=== PATIENT | male | born 1955 | race Caucasian/White ===

== ENCOUNTER 2017-03-24 09:25 | Observation (INO) | payer BC ==
[~2017-03-24] VITALS: Ht 170.2 cm; Wt 72.6 kg
[~2017-03-24 09:25] MED LIST: ceFAZolin 2GM PREMIX 2 GM/50 ML BAG IV ONE
--- NOTE | 2017-03-24 10:22 | PHYS DOC ---
Adult General Chief Complaint Chief Complaint: CONSTIPATION HPI HPI 61-year-old male with no prior GI history now presents to the emergency department because he has a small bottle stuck in his rectum. Patient states that yesterday he put a small hand cream bottle with a cylindrical shape approximately 4-5 inches long in his rectum. It did not come out and he is concerned that he is getting constipated as a result of it. He has been of some watery stool since the insertion episode. No pain or bleeding. No distended abdomen or vomiting. Review of Systems Review of Systems Constitutional: Denies fever or chills [] Eyes: Denies change in visual acuity, redness, or eye pain [] HENT: Denies nasal congestion or sore throat [] Respiratory: Denies cough or shortness of breath [] Cardiovascular: No additional information not addressed in HPI [] GI: Denies abdominal pain, nausea, vomiting, bloody stools or diarrhea [] : Denies dysuria or hematuria [] Musculoskeletal: Denies back pain or joint pain [] Integument: Denies rash or skin lesions [] Neurologic: Denies headache, focal weakness or sensory changes [] Endocrine: Denies polyuria or polydipsia [] Allergies Allergies Allergies Coded Allergies Type Severity Reaction Last Updated Verified No Known Drug Allergies 03/24/17 No Physical Exam Physical Exam Well-appearing 61-year-old male no acute distress smiling alert communicative and comfortable appearing clear lungs regular rate and rhythm no tachycardia benign abdomen and and anterior pelvis. No CVA tenderness. Nondistended abdomen with normal bowel sounds no mass or megaly. Constitutional: Well developed, well nourished, no acute distress, non-toxic appearance. [] HENT: Normocephalic, atraumatic, bilateral external ears normal, oropharynx moist, no oral exudates, nose normal. [] Eyes: PERRLA, EOMI, conjunctiva normal, no discharge. [] Neck: Normal range of motion, no tenderness, supple, no stridor. [] Cardiovascular:Heart rate regular rhythm, no murmur [] Lungs & Thorax: Bilateral breath sounds clear to auscultation [] Abdomen: Bowel sounds normal, soft, no tenderness, no masses, no pulsatile masses. [] Skin: Warm, dry, no erythema, no rash. [] Back: No tenderness, no CVA tenderness. [] Extremities: No tenderness, no cyanosis, no clubbing, ROM intact, no edema. [] Neurologic: Alert and oriented X 3, no focal deficits noted. [] Psychologic: Affect normal, judgement normal, mood normal. [] Current Patient Data Vital Signs Vital Signs Date Time Temp Pulse Resp B/P (MAP) Pulse Ox O2 Delivery O2 Flow Rate FiO2 03/24/17 10:59 98.3 97 18 150/98 (115) 97 Room Air 98.3 EKG EKG [] Radiology/Procedures Radiology/Procedures [] Course & Med Decision Making Course & Med Decision Making Pertinent Labs and Imaging studies reviewed. (See chart for details) 61-year-old male with rectal foreign body. No acute distress. No clinical evidence of rectal obstruction. Well-appearing patient vital signs stable. X- ray pending for further evaluation. X-ray without radiopaque foreign body. CT ordered given that radio opacity of object in question is unknown. CT returned with identifiable rectal foreign body 12 cm long 7 cm from the anus. Case will be discussed with GI piped buttonhole machine operator regarding strategy for extraction. Dr. Dowd of GI feels there is no therapeutic intervention he can offer given the nature and position of the foreign body in question. He recommends the patient to surgery. Case discussed with Dr. Be surgery on-call is aware the history and findings nature and position of said foreign body and will address by procedural/operative intervention in the OR. Patient will be kept nothing by mouth. Dragon Disclaimer Dragon Disclaimer This electronic medical record was generated, in whole or in part, using a voice recognition dictation system. Departure Departure Impression: Primary Impression: Rectal foreign body Disposition: ADMITTED INPATIENT Admitting Physician: Other Condition: STABLE Referrals: NO PCP (PCP) AL LYNCH MD Mar 24, 2017 10:22
--- NOTE | 2017-03-24 10:56 | RAD ---
Exam performed: One view pelvis. Clinical Indication: Rectal foreign body, hand lotion tube Date of Service:03/24/17 Comparison:None available Findings: AP radiograph of the pelvis to include the proximal portion of each femur reveals the osseous structures to be intact and well aligned. The joint spaces are well-preserved. Evidence of fracture or dislocation is not seen. No radiopaque foreign body is seen. Impression: Radiographically normal pelvis.
--- NOTE | 2017-03-24 14:01 | RAD ---
CT scan of the abdomen and pelvis without contrast 03/24/2017 Clinical history: The patient inserted a cylindrical tube of hand cream into rectum and is uncertain where it is located. Technique: Unenhanced, contiguous, 5 mm axial sections were obtained through the abdomen and pelvis. One or more of the following individualized dose reduction techniques were utilized for this study: 1. Automated exposure control. 2. Adjustment of the mA and/or kV according to patient size. 3. Use of iterative reconstruction technique. Findings: Images through the lung bases demonstrate linear bands of subsegmental atelectasis involving both lower lobes, right greater than left. There is a small sliding hiatal hernia. Multiple rounded low-attenuation lesions are seen scattered throughout both lobes of the liver. These measure 3 mm to 4.4 cm in size. They likely represent hepatic cysts. The spleen, pancreas, and adrenal glands are within normal limits. Nonobstructing calculi are seen involving both kidneys, left greater than right. These measure 1 to 4 mm in size. The gallbladder is contracted. The abdominal aorta tapers normally. No free fluid or free air is seen within the abdomen. There is no evidence of bowel obstruction. Images through the pelvis demonstrate the urinary bladder distended with urine. A foreign body consistent a tube of hand cream, is seen within the proximal/mid rectum. It measures approximately 12 cm in length. It is approximately 7.5 cm from the expected location of the anus. No additional foreign body is seen. Minimal S shaped curvature of the thoracic lumbar spine is seen. Degenerative changes are seen involving the lumbar spine and both hips. Impression: The rectal foreign body is located within the proximal/mid rectum as outlined above. No perforation is seen.
[2017-03-24] MEDS ORDERED: IV RINGERS,LACTATED 1000ML 1,000 ML IV SCH (15:54)
[2017-03-24] MEDS ORDERED: PROCHLORPERAZINE 10 MG/2 ML VIAL. IV PRN (16:00)
[2017-03-24] MEDS ORDERED: LIDOCAINE 1% 1 ML SYRINGE. ID PRN (16:00)
[2017-03-24] MEDS ORDERED: fentaNYL PF VIAL 100 MCG/2 ML VIAL IV PRN ×2 (16:00)
[2017-03-24] MEDS ORDERED: HYDROmorphone 2 MG/ML VIAL IV PRN (16:00)
[2017-03-24] MEDS ORDERED: ONDANSETRON PF 4 MG/2 ML VIAL. IV PRN (16:00)
[2017-03-24] MEDS ORDERED: MORPHINE SULFATE 2 MG/ML DISP.SYRIN. IV PRN (16:00)
[2017-03-24] MEDS ORDERED: BUPIVAC MPF-EPI 0.5%-1:200000 30 ML VIAL. ONE (16:02)
[2017-03-24] MEDS ORDERED: GELATIN SPONGE SIZE 100. ONE (16:02)
[2017-03-24] MEDS ORDERED: IV NORMAL SALINE 1000ML BAG 1,000 ML IV ONE (16:15)
--- NOTE | 2017-03-24 16:16 | EKG ---
[facility] [address] [place] [address] Test Date: 2017-03-24 Test Time: 16:00:00 Pat Name: PATRICIA GRANT Department: Room: 416 Gender: M [employer]: : 1955 Requested By: AL LYNCH Order Number: [id number] Reading MD: Demian Thomason Measurements Intervals [place] Rate: 93 P: 36 ID: [id number] QRS: 48 QRSD: 76 T: 30 QT: 360 QTc: 450 Interpretive Statements SINUS RHYTHM Electronically Signed On 03-25-2017 9:30:03 CDT by Demian Thomason
[2017-03-24] MEDS ORDERED: MIDAZOLAM HCL/PF 2 MG/2 ML VIAL. ONE (16:49)
[2017-03-24] MEDS ORDERED: fentaNYL PF VIAL 100 MCG/2 ML VIAL ONE (16:49)
[2017-03-24] MEDS ORDERED: PROPOFOL 20 ML IV ONE (16:49)
[2017-03-24] MEDS ORDERED: ONDANSETRON PF 4 MG/2 ML VIAL. ONE (16:49)
[2017-03-24] MEDS ORDERED: DEXAMETHASONE SOD PHOS 20 MG/5 ML VIAL. ONE (16:49)
[2017-03-24] MEDS ORDERED: LIDOCAINE 2% PF Vial for OR 5 ML VIAL. ONE (16:49)
--- NOTE | 2017-03-24 17:20 | PDOC1 ---
History and Physical Date of Admission Date of Admission DATE: 03/24/17 TIME: 17:16 History of Present Illness History of Present Illness The patient is a 61 year old male who admits to rectal insertion of a lotion bottle yesterday. He arrived to the ER as he was unable to pass the bottle. He denies any sharp objection. He reports some constipation but no significant pain. Past Medical History Past Medical History CAD Past Surgical History Past Surgical History CABG Social History Smoke: No ALCOHOL: rare Current Problem List Problem List Problems Medical Problems: (1) Rectal foreign body Status: Acute Problems: Current Medications Current Medications Current Medications Ondansetron HCl (Zofran) 4 mg PRN Q6HRS PRN IV NAUSEA/VOMITING; Start 03/24/17 at 16:00; Stop 03/25/17 at 15:59 Fentanyl Citrate (Fentanyl 2ml Vial) 25 mcg PRN Q5MIN PRN IV MILD PAIN; Start 03/24/17 at 16:00; Stop 03/25/17 at 15:59 Fentanyl Citrate (Fentanyl 2ml Vial) 50 mcg PRN Q5MIN PRN IV MODERATE PAIN; Start 03/24/17 at 16:00; Stop 03/25/17 at 15:59 Morphine Sulfate 1 mg PRN Q10MIN PRN IV SEVERE PAIN; Start 03/24/17 at 16:00; Stop 03/25/17 at 15:59 Ringer's Solution 1,000 ml @ 30 mls/hr Q24H IV ; Start 03/24/17 at 15:54; Stop 03/25/17 at 03:53 Lidocaine HCl 2 ml PRN 1X PRN ID PRIOR TO IV START; Start 03/24/17 at 16:00; Stop 03/25/17 at 15:59 Hydromorphone HCl (Dilaudid) 0.5 mg PRN Q10MIN PRN IV SEV PAIN, Second choice; Start 03/24/17 at 16:00; Stop 03/25/17 at 15:59 Prochlorperazine Edisylate (Compazine) 5 mg PACU PRN PRN IV NAUSEA, MRX1; Start 03/24/17 at 16:00; Stop 03/25/17 at 15:59 Bupivacaine HCl/ Epinephrine Bitart (Sensorcain-Mpf Epi 0.5%-1:528472) 30 ml STK -MED ONCE .ROUTE ; Start 03/24/17 at 16:02; Stop 03/24/17 at 16:03; Status DC Gelatin (Gelfoam Size 100) 1 each STK-MED ONCE .ROUTE ; Start 03/24/17 at 16:02 ; Stop 03/24/17 at 16:03; Status DC Sodium Chloride 1,000 ml @ 1,000 mls/hr 1X ONCE IV ; Start 03/24/17 at 16:15; Stop 03/24/17 at 17:14; Status DC Dexamethasone Sodium Phosphate (Decadron) 20 mg STK-MED ONCE .ROUTE ; Start at 16:49; Stop 03/24/17 at 16:50; Status DC Ondansetron HCl (Zofran) 4 mg STK-MED ONCE .ROUTE ; Start 03/24/17 at 16:49; Stop 03/24/17 at 16:50; Status DC Propofol 20 ml @ As Directed STK-MED ONCE IV ; Start 03/24/17 at 16:49; Stop at 16:50; Status DC Lidocaine HCl (Lidocaine Pf 2% Vial) 5 ml STK-MED ONCE .ROUTE ; Start 03/24/17 at 16:49; Stop 03/24/17 at 16:50; Status DC Midazolam HCl (Versed) 2 mg STK-MED ONCE .ROUTE ; Start 03/24/17 at 16:49; Stop 03/24/17 at 16:50; Status DC Fentanyl Citrate (Fentanyl 2ml Vial) 100 mcg STK-MED ONCE .ROUTE ; Start at 16:49; Stop 03/24/17 at 16:50; Status DC Cefazolin Sodium/ Dextrose 50 ml @ 100 mls/hr 1X ONCE IV ; Start 03/24/17 at 17:15; Stop 03/24/17 at 17:44 Allergies Allergies: Coded Allergies: No Known Drug Allergies (Unverified , 03/24/17) ROS General: No: Chills, Night Sweats, Fatigue, Malaise, Appetite, Other PSYCHOLOGICAL ROS: No: Anxiety, Behavioral Disorder, Concentration difficultie , Decreased libido, Depression, Disorientation, Hallucinations, Hostility, Irritablity, Memory difficulties, Mood Swings, Obsessive thoughts, Physical abuse, Sexual abuse, Sleep disturbances, Suicidal ideation, Other Eyes: No Blurry vision, No Decreased vision, No Double vision, No Dry eyes, No Excessive tearing, No Eye Pain, No Itchy Eyes, No Loss of vision, No Photophobia , No Scotomata, No Uses contacts, No Uses glasses, No Other HEENT: No: Heacaches, Visual Changes, Hearing change, Nasal congestion, Nasal discharge, Oral lesions, Sinus pain, Sore Throat, Epistaxis, Sneezing, Snoring, Tinnitus, Vertigo, Vocal changes, Other ALLERGY AND IMMUNOLOGY: No: Hives, Insect Bite Sensitivity, Itchy/Watery Eyes, Nasal Congestion, Post Nasal Drip, Seasonal Allergies, Other ENDOCRINE: No: Breast Changes, Galactorrhea, Hair Pattern Changes, Hot Flashes , Malaise/lethargy, Mood Swings, Palpitations, Polydipsia/polyuria, Skin Changes , Temperature Intolerance, Unexpected Weight Changes, Other Respiratory: No: Cough, Hemoptysis, Orthopnea, Pleuritic Pain, Shortness of breath, SOB with excertion, Sputum Changes, Stridor, Tachypnea, Wheezing, Other Cardiovascular: No Chest Pain, No Palpitations, No Orthopnea, No Paroxysmal Noc. Dyspnea, No Edema, No Lt Headedness, No Other Gastrointestinal: Yes Constipation Genitourinary: No Dysuria, No Frequency, No Incontinence, No Hematuria, No Retention, No Discharge, No Urgency, No Pain, No Flank Pain, No Other, No , No , No , No , No , No , No Musculoskeletal: No Gait Disturbance, No Joint Pain, No Joint Stiffness, No Joint Swelling, No Muscle Pain, No Muscular Weakness, No Pain In:, No Swelling In:, No Other Neurological: No Behavorial Changes, No Bowel/Bladder ControlChng, No Confusion , No Dizziness, No Gait Disturbance, No Headaches, No Impaired Coord/balance, No Memory Loss, No Numbness/Tingling, No Seizures, No Speech Problems, No Tremors, No Visual Changes, No Weakness, No Other Skin: No Dry Skin, No Eczema, No Hair Changes, No Lumps, No Mole Changes, No Mottling, No Nail Changes, No Pruritus, No Rash, No Skin Lesion Changes, No Other, No Acne Physical Exam General: Alert, Oriented X3, Cooperative HEENT: Atraumatic Lungs: Clear to auscultation Heart: RRR Abdomen: Soft, No tenderness Extremities: No clubbing, No cyanosis Skin: No rashes, No breakdown Neuro: Normal speech Psych/Mental Status: Mental status NL Vitals Vitals Vital Signs Date Time Temp Pulse Resp B/P (MAP) Pulse Ox O2 Delivery O2 Flow Rate FiO2 03/24/17 16:25 98.0 92 20 149/88 99 Room Air 98.[address] showing foreign object in proximal/mid rectum; recommend exam under anesthesia, retrieval of rectal foreign object. The details of surgery were discussed with the patient including the risks. He understands and would like to proceed. VTE Prophylaxis Ordered VTE Prophylaxis Devices: No VTE Pharmacological Prophylaxi: No FAYE VALLE MD Mar 24, 2017 17:20
[2017-03-24] MEDS ORDERED: ESMOLOL 100 MG/10 ML VIAL. IV ONE (17:49)
--- NOTE | 2017-03-24 17:57 | DISCH ---
DISCHARGE INSTRUCTIONS Condition on Discharge Condition on Discharge: Stable Activity After Discharge Activity Instructions for Disc: Resume previous activity Wound Incision Care Wound/Incision Care: Other, see below (expect some bleeding per rectum, and blood with stools for the next 24-48 hours) Contacting the DRVitaly after DC Call your doctor for: Return to the ER if persistent bleeding, worsening abdominal pain, or other concerns Follow-Up Follow up with: Dr Valle if any concerns or problems, FAYE VALLE MD Mar 24, 2017 17:57
--- NOTE | 2017-03-24 18:03 | PDOC4 ---
Operative Note Operative Note Operative Note: Preoperative Diagnosis: Rectal foreign object Postoperative Diagnosis: same Procedure: Rectal exam under anesthesia, retrieval of rectal foreign object, rigid sigmoidoscopy Surgeon: Haile Anesthesia: Gen. EBL: 20 mL Specimen: None Drains: None Complications: None Indication: The patient is a 61-year-old male who reported to emergency department out of concern regarding a rectal foreign object. He reports inserting a lotion tube yesterday that has been unable to pass. The plan is to proceed to the operating room for general anesthesia with a rectal exam, retrieval of the foreign object and possible sigmoidoscopy. The risks of surgery were discussed with the patient which include bleeding, infection, rectal injury, pain, potential need for additional surgery or procedure. He understands and would like to proceed. Description: The patient was taken to the operating room and placed supine on the operating table. Gen. anesthesia was performed. He was then placed in lithotomy. The perianal region was prepped with Betadine and draped in a standard surgical manner. Initial inspection showed no anal lesions. A digital rectal exam was then performed and the foreign object was identified approximately 7-8 cm proximal located somewhat posteriorly. I made initial attempts to grab the object using a ring forceps. Due to the material of the object however it proved difficult to grasp. Gradually I was able to dilate the anal canal and introduce an additional finger. Manually I was able to gradually reach the object and slowly it was pulled out of the rectum. It proved to be a lotion bottle and it appeared to be removed in its entirety including the cap. There were no sharp edges or objects associated with the bottle. There was a mild amount of bleeding which was suctioned. A rigid sigmoidoscopy was then performed. There appeared to be a couple of small shallow abrasions of the rectal mucosa, likely the source of the bleeding. No deeper injury could be visualized. The procedure was concluded. The patient tolerated the surgery well and was sent to the recovery room in stable condition. At the end of the case all counts were correct. FAYE VALLE MD Mar 24, 2017 18:03
[2017-03-24 18:52] VITALS: BP 128/78
--- NOTE | 2017-03-27 09:34 | PATHOLOGY ---
PATHOLOGY REPORT * * * * * * * * FINAL DIAGNOSIS: Foreign body "foreign body rectum": - Opaque plastic bottle measuring 12.3 cm in length (gross diagnosis). (SHA):db; 03/26/2017) REPORT ELECTRONICALLY SIGNED BY: Hunter Vanegas M.D. DATE/TIME: 03/27/2017 09:34 * * * * * * * * GROSS PATHOLOGY: The specimen is received fresh, labeled "Patricia Grant, foreign body, rectum". Received is an opaque plastic bottle measuring 12.3 cm in length and ranging in diameter from 2.2 to 3.4 cm. A gross photograph is taken. Sections are not submitted. (CAA; 03/26/2017) INITIAL CPT CODE(S): A; 42357 Professional services performed [place] [address] Technical services performed by [facility] at [address] [place] [address]. SPECIMEN(S) RECEIVED: AUSTYN CLINICAL HISTORY: FB rectum PATIENT: PATRICIA GRANT /AGE: 10 1955 (Age: 61) PATIENT #: [id number] ALT CASE #: SPECIMEN COLLECTION DATE: 03/24/2017 SPECIMEN RECEIVED DATE: 03/25/2017 [facility] [place] [address] - PHONE: [phone] * * * END OF REPORT * * *
== END 2017-03-24 16:00 | disposition home or self-care (01) ==
LOC: ER 09:25 → 4 NORTH 15:44
PROVIDERS: ADMIT Surgery; ATTEND Surgery
DX: T18.5XXA Foreign body in anus and rectum, initial encounter (principal); K59.00 Constipation, unspecified; I25.10 Atherosclerotic heart disease of native coronary artery without angina pectoris; X58.XXXA Exposure to other specified factors, initial encounter; Y93.89 Activity, other specified; Y92.89 Other specified places as the place of occurrence of the external cause; Y99.8 Other external cause status; Z95.1 Presence of aortocoronary bypass graft
CPT/HCPCS: 45915; 72170; 74176; 93005; 99285; G0378; J0690; J1100; J2250; J2405; J2704; J3010; J3490; 88300; G0379; J2001